=== PATIENT | female | born 1980 | race American Indian/Alaskan Native ===

== ENCOUNTER 2018-06-18 18:12 | Emergency (ER) | payer MEDICAID ==
[~2018-06-18] VITALS: Ht 180.3 cm; Wt 95.5 kg
[2018-06-18 18:15] VITALS: BP 151/70
--- NOTE | 2018-06-18 18:45 | NUR ---
discussed pt's pain w/ Dr Daniel; new order received for Toradol 15mg im
[2018-06-18] MEDS ORDERED: ketorolac tromethamine 15mg/ml inj. IV ONE (18:50)
[2018-06-18] MEDS ORDERED: ketorolac trometh. 30mg/ml inj. IV ONE (18:50)
[2018-06-18] MEDS ORDERED: LORazepam 2 mg/ml vial IV ONE ×2 (19:25→20:25)
[2018-06-18] MEDS ORDERED: morphine 10mg/ml inj. IV ONE (19:25)
[2018-06-18] MEDS ORDERED: morphine 4 MG/ML inj SYRINge IV ONE (19:25)
[2018-06-18] MEDS ORDERED: HYDR-3965 PO (21:12)
== END 2018-06-18 22:33 | disposition home or self-care (01) ==
LOC: ER 18:13
DX: S89.81XA Other specified injuries of right lower leg, initial encounter (principal); F17.200 Nicotine dependence, unspecified, uncomplicated; X50.1XXA Overexertion from prolonged static or awkward postures, initial encounter; Y93.89 Activity, other specified; Y92.89 Other specified places as the place of occurrence of the external cause; Y99.9 Unspecified external cause status
CPT/HCPCS: 29505; 73560; 73700; 96374; 96375; 96376; 99284; J1885; J2060; J2270

== ENCOUNTER 2018-06-27 10:46 | Outpatient (CLI) | payer MEDICAID ==
[2018-06-27 10:42] VITALS: BP 124/78
[~2018-06-27 10:46] MED LIST: HYDR-3965 PO
== END 2018-06-27 11:25 | disposition home or self-care (01) ==
LOC: ORTHO 10:46
PROVIDERS: ATTEND Nurse Practitioner Family
DX: S89.81XA Other specified injuries of right lower leg, initial encounter (principal); Z72.89 Other problems related to lifestyle; X58.XXXA Exposure to other specified factors, initial encounter; Y93.89 Activity, other specified; Y92.89 Other specified places as the place of occurrence of the external cause; Y99.8 Other external cause status
CPT/HCPCS: 99213

== ENCOUNTER 2019-08-06 12:56 | Inpatient (IN) | payer MEDICAID ==
[~2019-08-06] VITALS: Ht 180.3 cm; Wt 104.5 kg
[2019-08-06] VITALS (15 sets, daily range): BP systolic 109–138; BP diastolic 67–87
[2019-08-06] MEDS ORDERED: ondansetron/PF 4mg/2ml inj IV ONE (13:30)
[2019-08-06] MEDS ORDERED: morphine 4 MG/ML inj SYRINge IV ONE (13:30)
[2019-08-06] MEDS ORDERED: normal saline 1000ml 1,000 ML IV ONE (13:35)
[2019-08-06] MEDS ORDERED: LORazepam 2 mg/ml vial IV ONE (13:35)
[2019-08-06] MEDS ORDERED: famotidine/PF 10 mg/ml inj IV ONE (13:35)
[2019-08-06 13:38] LABS: BASOPHILS # (AUTO) 0.1 X10'3 (0-0.2); BASOPHILS % (AUTO) 0.4 % (0-1); EOSINOPHILS # (AUTO) 0.1 X10'3 (0-0.9); EOSINOPHILS % (AUTO) 0.5 % (0-6); HEMATOCRIT 44.2 % (35.0-45.0); HEMOGLOBIN 14.8 g/dl (12.0-16.0); LYMPHOCYTES # (AUTO) 2.6 X10'3 (1.1-4.8); LYMPHOCYTES % (AUTO) 18.6 % (21-51); MEAN CORPUSCULAR HEMOGLOBIN 28.9 PG (27.0-31.0); MEAN CORPUSCULAR HGB CONC 33.5 g/dL (33.0-36.5); MEAN CORPUSCULAR VOLUME 86.2 FL (78-98); MEAN PLATELET VOLUME 9.9 FL (7.4-10.4); MONOCYTES % (AUTO) 7.3 % (2-12); NEUTROPHILS # (AUTO) 10.4 X10'3 (1.8-7.7); NEUTROPHILS % (AUTO) 73.2 % (42-75); PLATELET COUNT 305 X10'3 (140-440); RED BLOOD COUNT 5.13 X10'6 (4.20-5.60); RED CELL DISTRIBUTION WIDTH 13.6 % (11.5-14.5); WHITE BLOOD COUNT 14.1 X10'3 (4.5-11.0)
[2019-08-06 13:58] LABS: ALANINE AMINOTRANSFERASE 14 U/L (12-78); ALBUMIN 4.1 G/DL (3.4-5.0); ALKALINE PHOSPHATASE 85 IU/L (46-116); ANION GAP 14 (8-16); ASPARTATE AMINO TRANSFERASE 16 U/L (10-37); BILIRUBIN,TOTAL 0.4 MG/DL (0.1-1.0); BLOOD UREA NITROGEN 6 MG/DL (7-18); CALCIUM 9.7 MG/DL (8.5-10.1); CHLORIDE 104 MMOL/L (99-107); CREATININE 0.86 MG/DL (0.40-0.90); GLUCOSE 115 MG/DL (70-104); LIPASE 177 U/L (73-393); POTASSIUM 3.4 MMOL/L (3.5-5.1); SODIUM 140 MMOL/L (135-145); TOTAL CARBON DIOXIDE 22.3 MMOL/L (24-32); TOTAL PROTEIN 8.1 G/DL (6.4-8.2); eGFR 73 ML/MIN
--- NOTE | 2019-08-06 14:34 | NUR ---
BACK FROM CT SCAN VIA WHEELCHAIR IN STABLE CONDITION
[2019-08-06] MEDS ORDERED: fentaNYL/PF 50MCG/1 ML 2ML syringe IV ONE (15:20)
[2019-08-06] MEDS ORDERED: magnesium Cl slow-release 64mg tablet PO PRN (15:25)
[2019-08-06] MEDS ORDERED: potassium CL 10mEq/100ml bag 100 ML IV PRN ×2 (15:25)
[2019-08-06] MEDS ORDERED: magnesium 2GM in 50ml NS 50 ML IV PRN (15:25)
[2019-08-06] MEDS ORDERED: ondansetron/PF 4mg/2ml inj IV PRN ×3 (15:25→17:30)
[2019-08-06] MEDS ORDERED: HYDROcodone/acetaminophen 5mg/325mg tablet PO PRN (15:25)
[2019-08-06] MEDS ORDERED: morphine 2 MG/ML inj. syringe IV PRN ×2 (15:25→16:25)
[2019-08-06] MEDS ORDERED: diphenhydrAMINE 25mg capsule PO PRN (15:25)
[2019-08-06] MEDS ORDERED: acetaminophen 325mg tablet PO PRN ×2 (15:25)
[2019-08-06] MEDS ORDERED: magnesium 4gm in 100ml NS 100 ML IV PRN (15:25)
[2019-08-06] MEDS ORDERED: diphenhydrAMINE 50 mg/ml inj IV PRN (15:25)
[2019-08-06] MEDS ORDERED: acetaminophen 650mg rectal suppository RC PRN (15:25)
[2019-08-06] MEDS ORDERED: mag hydrox/Alum hydrox/simeth 30ml oral suspension PO PRN (15:25)
[2019-08-06] MEDS ORDERED: potassium Cl 20 mEq SR tablet PO PRN ×2 (15:25)
[2019-08-06] MEDS ORDERED: metoclopramide 5 mg/ml inj IV PRN (15:25)
[2019-08-06] MEDS ORDERED: HYDROcodone/acetaminophen 10/325mg tab PO PRN ×2 (15:25→17:30)
--- NOTE | 2019-08-06 15:48 | NUR ---
PT TO OR VIA GURNEY WITH OR TEAM. PT IN STABLE CONDITION.
[2019-08-06] MEDS ORDERED: OMEP-50 PO (15:51)
[2019-08-06 16:04] LABS: HEMOGLOBIN A1C 5.7 % (4.5-6.2)
[2019-08-06] MEDS ORDERED: BUPIVAcaine/PF 2.5 mg/ml (0.25%) 30ml vial ONE (16:19)
[2019-08-06] MEDS ORDERED: ceFAZolin 1000mg inj ONE (16:19)
[2019-08-06] MEDS ORDERED: ringers solution, lacted 1,000 ML IV SCH (16:24)
[2019-08-06] MEDS ORDERED: morphine 4 MG/ML inj SYRINge IV PRN (16:25)
[2019-08-06] MEDS ORDERED: meperidine/PF 25mg/ml syringe IV PRN ×3 (16:25)
[2019-08-06] MEDS ORDERED: proCHLORperazine 10 MG/2 ml inj IV PRN (16:25)
[2019-08-06] MEDS ORDERED: sevoflurane 250ml liquid IH ONE (16:26)
[2019-08-06] MEDS ORDERED: propofol inj 20 ML IV ONE (16:28)
[2019-08-06] MEDS ORDERED: midazolam 2 mg/2 ml injection ONE (16:28)
[2019-08-06] MEDS ORDERED: fentaNYL /PF 50mcg/ml 5ml ampule ONE (16:28)
[2019-08-06] MEDS ORDERED: rocuronium 10mg/ml inj IV ONE (16:28)
[2019-08-06] MEDS ORDERED: ceFOXitin 2 GM ADDVANTGE BAG 50 ML IV ONE (16:31)
[2019-08-06] MEDS ORDERED: neostigmine methylsulfate 1 MG/ML 10ml vial ONE (17:28)
[2019-08-06] MEDS ORDERED: glycopyrrolate 0.2mg/ml inj ONE (17:28)
--- NOTE | 2019-08-06 17:40 | NUR ---
PATIENT A&OX4, V/S WNL, CSM INTACT, SCD OFF, 20G PIV LUE D/C, NASAL PACKING COTTINOIDS D/C AFTER 1/[address] PONCE AND PATIENT WAS GIVEN THE SALINE RINSE AND OINTMENT ORDERED. SCANT NASAL DRAINAGE AT THIS TIME. i HAVE REVIEWED D/C INSTRUCTIONS WITH PATIENT AND FAMILY AND THEY HAVE EVRBALIZED UNDERSTANDING. PATIENT D/C HOME WITH ALL BELONGINGS AND MEDS THAT WERE ORDERED. Addendum: 08/06/19 at 2892 by Elier Sheriff RN WRONG PATIENT
--- NOTE | 2019-08-06 17:45 | NUR ---
Received from OR via BED , accompanied by Anesthesiologist DR TAMEZ and report given by Anesthesiolgist. PATIENT WAKING UP, DENIES P[AIN, V/S WNL, CSM INTACT, 20G PIV TO RUE. 4 LAP SITES TO ABDOMEN CDI.
--- NOTE | 2019-08-06 18:35 | NUR ---
PATIENT A&OX4, DENIES P[AIN, V/S WNL, CSM INTACT, 20G PIV TO RUE. 4 LAP SITES TO ABDOMEN CDI. PATIENT TAKEN TO 357B WITH ALL BELONGINGS AND REPORT GIVEN TO CLINICAL APPLICATIONS MANAGER WHO HAS TAKEN OVER CARE.
[2019-08-06] MEDS: levoFLOXACIN-Levaquin 750MG/D5 150 ML IV SCH (18:56)
[2019-08-06] MEDS: morphine 2 MG/ML inj. syringe IV PRN ×2 (18:56→23:41)
[2019-08-06] MEDS: K and/or MAG REPLACEMENT MC SCH (19:17)
--- NOTE | 2019-08-06 19:36 | NUR ---
Patient in room [facility]. I have received report from DUONG Frye and had the opportunity to ask questions and assume patient care. Addendum: 08/06/19 at 1941 by Yoko Caba RN Amended: Links added.
[2019-08-06] MEDS: metroNIDAZOLE-Flagyl 500mg/NS 100 ML IV SCH ×2 (20:26→23:40)
[2019-08-06] MEDS: normal saline 1000ml 1,000 ML IV SCH (20:26)
[2019-08-07 00:48] VITALS: BP 107/69
[2019-08-07] MEDS: normal saline 1000ml 1,000 ML IV SCH (01:25)
[2019-08-07] MEDS: morphine 2 MG/ML inj. syringe IV PRN ×2 (04:01→17:38)
--- NOTE | 2019-08-07 06:08 | NUR ---
Problems reprioritized. Patient report given, questions answered & plan of care reviewed with DUONG Riggs. Addendum: 08/07/19 at 0608 by Yoko Caba RN Amended: Links added.
[2019-08-07 06:10] LABS: BASOPHILS % (AUTO) 0.5 % (0-1); EOSINOPHILS # (AUTO) 0.1 X10'3 (0-0.9); EOSINOPHILS % (AUTO) 1.4 % (0-6); HEMATOCRIT 37.4 % (35.0-45.0); HEMOGLOBIN 12.6 g/dl (12.0-16.0); LYMPHOCYTES # (AUTO) 1.7 X10'3 (1.1-4.8); LYMPHOCYTES % (AUTO) 19.9 % (21-51); MEAN CORPUSCULAR HEMOGLOBIN 29.2 PG (27.0-31.0); MEAN CORPUSCULAR HGB CONC 33.7 g/dL (33.0-36.5); MEAN CORPUSCULAR VOLUME 86.5 FL (78-98); MEAN PLATELET VOLUME 9.9 FL (7.4-10.4); MONOCYTES # (AUTO) 0.8 X10'3 (0-0.9); MONOCYTES % (AUTO) 8.9 % (2-12); NEUTROPHILS % (AUTO) 69.3 % (42-75); PLATELET COUNT 210 X10'3 (140-440); RED BLOOD COUNT 4.32 X10'6 (4.20-5.60); RED CELL DISTRIBUTION WIDTH 13.4 % (11.5-14.5); WHITE BLOOD COUNT 8.6 X10'3 (4.5-11.0)
[2019-08-07 06:32] LABS: ALANINE AMINOTRANSFERASE 25 U/L (12-78); ALKALINE PHOSPHATASE 68 IU/L (46-116); ANION GAP 7 (8-16); ASPARTATE AMINO TRANSFERASE 31 U/L (10-37); BILIRUBIN,TOTAL 0.6 MG/DL (0.1-1.0); BLOOD UREA NITROGEN 4 MG/DL (7-18); CHLORIDE 110 MMOL/L (99-107); CHOL/HDL RATIO 3.2 (0.00-4.99); CHOLESTEROL 122 MG/DL (0-200); CREATININE 0.67 MG/DL (0.40-0.90); GLUCOSE 104 MG/DL (70-104); HDL CHOLESTEROL 38 MG/DL (35-60); LDL CHOLESTEROL 72 MG/DL (50-100); MAGNESIUM 1.8 MG/DL (1.5-2.4); POTASSIUM 3.8 MMOL/L (3.5-5.1); SODIUM 142 MMOL/L (135-145); TOTAL CARBON DIOXIDE 24.9 MMOL/L (24-32); TOTAL PROTEIN 6.1 G/DL (6.4-8.2); TRIGLYCERIDES 68 MG/DL (20-135); eGFR > 90 ML/MIN
[2019-08-07] MEDS: K and/or MAG REPLACEMENT MC SCH ×2 (06:54→20:00)
[2019-08-07 08:00] VITALS: BP 111/60
[2019-08-07] MEDS: metroNIDAZOLE-Flagyl 500mg/NS 100 ML IV SCH ×2 (08:17→16:17)
[2019-08-07] MEDS: heparin, porcine 5000 units/ml vial SQ SCH ×2 (08:25→20:42)
[2019-08-07] MEDS: pantoprazole 40mg Tablet.DR PO SCH (08:26)
[2019-08-07] MEDS: levoFLOXACIN-Levaquin 750MG/D5 150 ML IV SCH (09:55)
[2019-08-07 11:00] VITALS: BP 116/71
[2019-08-07] MEDS: oxyCODONE/APAP 5-325mg tablet PO PRN ×2 (12:38→20:42)
[2019-08-07] MEDS: magnesium hydroxide 30ml (MOM) UD suspension PO PRN (17:38)
--- NOTE | 2019-08-07 17:55 | NUR ---
PAGER ID: [phone] MESSAGE: rm [phone]. pt. Patrizia Nelson. pt. has been having very bad pain control. the Percocet 5 has worked well for her. but its Q6H and wears off quickly. can we order Percocet 10 Q4H for her. please advise. Ale WATTERS [id number]
[2019-08-07 18:00] VITALS: BP 137/70
--- NOTE | 2019-08-07 18:39 | NUR ---
Problems reprioritized. Patient report given, questions answered & plan of care reviewed with DUONG Grant.
[2019-08-07] MEDS: lactobacillus rhamnosus 10,000 MMU CELLS/CAPSULE PO SCH (20:41)
[2019-08-07 22:00] VITALS: BP 112/64
[2019-08-08] MEDS: metroNIDAZOLE-Flagyl 500mg/NS 100 ML IV SCH ×2 (00:35→08:17)
[2019-08-08] MEDS: morphine 2 MG/ML inj. syringe IV PRN ×2 (00:35→08:38)
[2019-08-08] MEDS: oxyCODONE/APAP 5-325mg tablet PO PRN ×2 (06:02→12:03)
[2019-08-08 06:08] LABS: ALANINE AMINOTRANSFERASE 43 U/L (12-78); ALBUMIN 2.9 G/DL (3.4-5.0); ALBUMIN/GLOBULIN RATIO 0.9 (1.1-1.5); ALKALINE PHOSPHATASE 72 IU/L (46-116); ANION GAP 8 (8-16); ASPARTATE AMINO TRANSFERASE 38 U/L (10-37); BILIRUBIN,TOTAL 0.5 MG/DL (0.1-1.0); BLOOD UREA NITROGEN 3 MG/DL (7-18); CALCIUM 8.2 MG/DL (8.5-10.1); CHLORIDE 108 MMOL/L (99-107); GLUCOSE 98 MG/DL (70-104); MAGNESIUM 1.9 MG/DL (1.5-2.4); POTASSIUM 3.6 MMOL/L (3.5-5.1); SODIUM 142 MMOL/L (135-145); TOTAL CARBON DIOXIDE 25.7 MMOL/L (24-32); TOTAL PROTEIN 6.1 G/DL (6.4-8.2); eGFR > 90 ML/MIN
[2019-08-08 06:09] LABS: BASOPHILS % (AUTO) 0.3 % (0-1); EOSINOPHILS # (AUTO) 0.1 X10'3 (0-0.9); EOSINOPHILS % (AUTO) 1.3 % (0-6); HEMATOCRIT 35.9 % (35.0-45.0); HEMOGLOBIN 12.2 g/dl (12.0-16.0); LYMPHOCYTES # (AUTO) 1.6 X10'3 (1.1-4.8); LYMPHOCYTES % (AUTO) 21.2 % (21-51); MEAN CORPUSCULAR HEMOGLOBIN 29.3 PG (27.0-31.0); MEAN CORPUSCULAR HGB CONC 33.9 g/dL (33.0-36.5); MEAN CORPUSCULAR VOLUME 86.4 FL (78-98); MEAN PLATELET VOLUME 9.9 FL (7.4-10.4); MONOCYTES # (AUTO) 0.7 X10'3 (0-0.9); MONOCYTES % (AUTO) 9.1 % (2-12); NEUTROPHILS # (AUTO) 5.3 X10'3 (1.8-7.7); NEUTROPHILS % (AUTO) 68.1 % (42-75); PLATELET COUNT 193 X10'3 (140-440); RED BLOOD COUNT 4.16 X10'6 (4.20-5.60); RED CELL DISTRIBUTION WIDTH 13.3 % (11.5-14.5); WHITE BLOOD COUNT 7.8 X10'3 (4.5-11.0)
--- NOTE | 2019-08-08 06:28 | NUR ---
Problems reprioritized. Patient report given, questions answered & plan of care reviewed with DUONG Dupont.
[2019-08-08 06:30] VITALS: BP 115/69
--- NOTE | 2019-08-08 06:37 | NUR ---
Patient in room MED 316. I have received report from Candie WATTERS and had the opportunity to ask questions and assume patient care. Addendum: 08/08/19 at 0638 by Kiah Carrera RN Received report from Juanita WATTERS not Candie WATTERS.
[2019-08-08] MEDS: K and/or MAG REPLACEMENT MC SCH (08:00)
[2019-08-08] MEDS: pantoprazole 40mg Tablet.DR PO SCH (08:18)
[2019-08-08] MEDS: lactobacillus rhamnosus 10,000 MMU CELLS/CAPSULE PO SCH (08:18)
[2019-08-08] MEDS: heparin, porcine 5000 units/ml vial SQ SCH (08:19)
[2019-08-08] MEDS: levoFLOXACIN-Levaquin 750MG/D5 150 ML IV SCH (08:22)
[2019-08-08 11:00] VITALS: BP 104/61
[2019-08-08] MEDS: magnesium hydroxide 30ml (MOM) UD suspension PO PRN (12:03)
[2019-08-08] MEDS ORDERED: PER5325T PO (12:43)
--- NOTE | 2019-08-08 13:41 | NUR ---
Paged hosp, "mandi [phone] WardrogPatrizia richmond discharging. Need a written Percocet script please."
--- NOTE | 2019-08-08 15:00 | NUR ---
Discussed discharge instructions with patient, verbalized understanding. Her sister went to [facility] her pain medicine up. IV out cathlon intact, tele dc'd. Belongings sent with patient. Escorted out via [facility] RN via W/C to private vehicle, without event, tolerated well.
[2019-08-08] MEDS ORDERED: metroNIDAZOLE 500mg tablet PO SCH (16:00)
[2019-08-09] MEDS ORDERED: levoFLOXACIN 750MG TABLET PO SCH (11:00)
== END 2019-08-08 15:30 | disposition home or self-care (01) | DRG 263 ==
LOC: ER 12:57 → ED HOLD 15:25 → SUR 3N 18:41 → MED 3N 08-07 17:26
PROVIDERS: ADMIT Family Medicine; ATTEND Family Medicine
PROC: 0FT44ZZ Resection of Gallbladder, Percutaneous Endoscopic Approach (ICD-10-PCS; principal; 2019-08-06 16:26)
DX: K80.00 Calculus of gallbladder with acute cholecystitis without obstruction (principal); K21.9 Gastro-esophageal reflux disease without esophagitis; Z87.11 Personal history of peptic ulcer disease; Z87.891 Personal history of nicotine dependence; Z79.899 Other long term (current) drug therapy
CPT/HCPCS: 36415; 71045; 74176; 76700; 80053; 80061; 83036; 83690; 83735; 84484; 85025; 86885; 86900; 86901; 87081; 93005; 99285; A4215; A4618; A6402; A7000; G0378; J0690; J0694; J1644; J1956; J2060; J2250; J2270; J2405; J2704; J2710; J3010; J3490; J7030; J7120